=== PATIENT | female | born 1935 | race African-American/Black ===

== ENCOUNTER 2016-12-15 07:26 | Day surgery (SDC) | payer MEDICARE ==
[~2016-12-15] VITALS: Ht 167.6 cm; Wt 83.0 kg
--- NOTE | ~2016-12-15 | EGD ---
EGD REPORT [facility] [address] [address] NAME: SIDDHARTH WHATLEY : [birth year] STATUS : [facility]#: [id number] AGE: 81 ADM/REG DATE : 12/15/16 MR#: [id number] REPORT SERV DATE: 12/18/16 DICTATED BY: ALBERT BRADEN DATE: 12/18/16 REPORT STATUS : Draft [facility] DATE: 12/18/16 Pulmonology Patient Name: Siddharth Whatley Procedure Date: 12/15/2016 10:14 AM Date of : 1935 Attending MD: JOSHUA BRADEN MD Procedure Date No Time: 12/15/2016 Procedure: Bronchoscopy Indications: Tracheostomy change. Unable to peform with home health Providers: JOSHUA BRADEN MD Referring MD: TUNDE LIN Medicines: Lidocaine 2% 20 mL Complications: No immediate complications Procedure: Pre-Anesthesia Assessment: - ASA Grade Assessment: III - A patient with severe systemic disease. - After reviewing the risks and benefits, the patient was deemed in satisfactory condition to undergo the procedure. - A History and Physical has been performed. Patient meds and allergies have been reviewed. The risks and benefits of the procedure and the sedation options and risks were discussed with the patient. All questions were answered and informed consent was obtained. Patient identification and proposed procedure were verified prior to the procedure by the physician and the nurse in the pre-procedure area in the procedure room. Mental Status Examination: alert and oriented. Airway Examination: status post tracheostomy. CV Examination: normal and RRR, no murmurs, no S3 or S4. ASA Grade Assessment: III - A patient with severe systemic disease. After reviewing the risks and benefits, the patient was deemed in satisfactory condition to undergo the procedure. The anesthesia plan was to use general anesthesia. Immediately prior to administration of medications, the patient was re-assessed for adequacy to receive sedatives. The heart rate, respiratory rate, oxygen saturations, blood pressure, adequacy of pulmonary ventilation, and response to care were monitored throughout the procedure. The physical status of the patient was re-assessed after the procedure. After obtaining informed consent, the BF [id number] was introduced through the mouth, via face mask and advanced to the tracheobronchial tree. The procedure was accomplished without difficulty. The patient EGD REPORT [address] [place]. [address] NAME: SIDDHARTH WHATLEY : [birth year] STATUS : [facility] PAT#: [id number] AGE: 81 ADM/REG DATE : 12/15/16 MR#: [id number] REPORT SERV DATE: 12/18/16 DICTATED BY: ALBERT BRADEN DATE: 12/18/16 REPORT STATUS : Draft TRANSCRIBED BY: [employer] DATE: 12/18/16 tolerated the procedure well. Findings: The distal portion of the Portex 7.0 trach was nearly (90%) occluded by a shelf of tissue. Below the shelf of tissue the trachea is completely patent. The alexander is sharp. The tracheobronchial tree was examined to at least the first subsegmental level. Bronchial mucosa and anatomy are normal; there are no endobronchial lesions. Thick white secretions were aspirated. Bronchoalveolar lavage was performed in the right middle lobe of the lung and sent for cell count, cytology, bacterial culture, viral smears \T\ culture, and fungal and AFB analysis. 60 mL of fluid were instilled. 20 mL were returned. The return was cloudy. The Portex trach was difficult to remove secondary to granulation tissue but eventually easily removed. To bypass the shelf of tissue obstructing the distal portion of trach a 6.0 Shiley frenestrated cuffed trach was placed. The airway is no longer obstructed. Impression: Portex 7.0 trach was nearly (90%) occluded by a shelf of tissue. 6.0 Shiley frenestrated cuffed trach was placed. The airway is no longer obstructed. Recommendation: - Chest X-ray post-procedure. Attending Participation: I personally performed the entire procedure. JOSHUA BRADEN MD 12/15/2016 11:03 AM This report has been signed electronically. Number of Addenda: 0 Note Initiated On: 12/15/2016 10:14 AM [address] [address]
--- NOTE | ~2016-12-15 | EGD ---
EGD REPORT [facility] [address] [address] NAME: SIDDHARTH WHATLEY : [birth year] STATUS : [facility]#: [id number] AGE: 81 ADM/REG DATE : 12/15/16 MR#: [id number] REPORT SERV DATE: 12/18/16 DICTATED BY: ALBERT BRADEN DATE: 12/18/16 REPORT STATUS : Draft [facility]: [facility] DATE: 12/18/16 Pulmonology Patient Name: Siddharth Whatley Procedure Date: 12/15/2016 10:14 AM Date of : 1935 Attending MD: JOSHUA BRADEN MD Procedure Date No Time: 12/15/2016 Procedure: Bronchoscopy Indications: Tracheostomy change. Unable to peform with home health Providers: JOSHUA BRADEN MD Referring MD: TUNDE LIN Medicines: Lidocaine 2% 20 mL Complications: No immediate complications Procedure: Pre-Anesthesia Assessment: - ASA Grade Assessment: III - A patient with severe systemic disease. - After reviewing the risks and benefits, the patient was deemed in satisfactory condition to undergo the procedure. - A History and Physical has been performed. Patient meds and allergies have been reviewed. The risks and benefits of the procedure and the sedation options and risks were discussed with the patient. All questions were answered and informed consent was obtained. Patient identification and proposed procedure were verified prior to the procedure by the physician and the nurse in the pre-procedure area in the procedure room. Mental Status Examination: alert and oriented. Airway Examination: status post tracheostomy. CV Examination: normal and RRR, no murmurs, no S3 or S4. ASA Grade Assessment: III - A patient with severe systemic disease. After reviewing the risks and benefits, the patient was deemed in satisfactory condition to undergo the procedure. The anesthesia plan was to use general anesthesia. Immediately prior to administration of medications, the patient was re-assessed for adequacy to receive sedatives. The heart rate, respiratory rate, oxygen saturations, blood pressure, adequacy of pulmonary ventilation, and response to care were monitored throughout the procedure. The physical status of the patient was re-assessed after the procedure. After obtaining informed consent, the BF [id number] was introduced through the mouth, via face mask and advanced to the tracheobronchial tree. The procedure was accomplished without difficulty. The patient EGD REPORT [address] [place]. [address] NAME: SIDDHARTH WHATLEY : [birth year] STATUS : [facility] PAT#: [id number] AGE: 81 ADM/REG DATE : 12/15/16 MR#: [id number] REPORT SERV DATE: 12/18/16 DICTATED BY: ALBERT BRADEN DATE: 12/18/16 REPORT STATUS : Draft TRANSCRIBED BY: [employer] DATE: 12/18/16 tolerated the procedure well. Findings: The distal portion of the Portex 7.0 trach was nearly (90%) occluded by a shelf of tissue. Below the shelf of tissue the trachea is completely patent. The alexander is sharp. The tracheobronchial tree was examined to at least the first subsegmental level. Bronchial mucosa and anatomy are normal; there are no endobronchial lesions. Thick white secretions were aspirated. Bronchoalveolar lavage was performed in the right middle lobe of the lung and sent for cell count, cytology, bacterial culture, viral smears \T\ culture, and fungal and AFB analysis. 60 mL of fluid were instilled. 20 mL were returned. The return was cloudy. The Portex trach was difficult to remove secondary to granulation tissue but eventually easily removed. To bypass the shelf of tissue obstructing the distal portion of trach a 6.0 Shiley frenestrated cuffed trach was placed. The airway is no longer obstructed. Impression: Portex 7.0 trach was nearly (90%) occluded by a shelf of tissue. 6.0 Shiley frenestrated cuffed trach was placed. The airway is no longer obstructed. Recommendation: - Chest X-ray post-procedure. Attending Participation: I personally performed the entire procedure. JOSHUA BRADEN MD 12/15/2016 11:03 AM This report has been signed electronically. Number of Addenda: 0 Note Initiated On: 12/15/2016 10:14 AM [address] [address]
--- NOTE | ~2016-12-15 | EGD ---
EGD REPORT [facility] [address] [address] NAME: SIDDHARTH WHATLEY : [birth year] STATUS : [facility]#: [id number] AGE: 81 ADM/REG DATE : 12/15/16 MR#: [id number] REPORT SERV DATE: 12/15/16 DICTATED BY: ALBERT BRADEN DATE: 12/15/16 REPORT STATUS : Draft TRANSCRIBED BY: [facility] DATE: 12/15/16 Pulmonology Patient Name: Siddharth Whatley Procedure Date: 12/15/2016 10:14 AM Date of : 1935 Attending MD: JOSHUA BRADEN MD Procedure Date No Time: 12/15/2016 Procedure: Bronchoscopy Indications: Tracheostomy change. Unable to peform with home health Providers: JOSHUA BRADEN MD Referring MD: TUNDE LIN Medicines: Lidocaine 2% 20 mL Complications: No immediate complications Procedure: Pre-Anesthesia Assessment: - ASA Grade Assessment: III - A patient with severe systemic disease. - After reviewing the risks and benefits, the patient was deemed in satisfactory condition to undergo the procedure. - A History and Physical has been performed. Patient meds and allergies have been reviewed. The risks and benefits of the procedure and the sedation options and risks were discussed with the patient. All questions were answered and informed consent was obtained. Patient identification and proposed procedure were verified prior to the procedure by the physician and the nurse in the pre-procedure area in the procedure room. Mental Status Examination: alert and oriented. Airway Examination: status post tracheostomy. CV Examination: normal and RRR, no murmurs, no S3 or S4. ASA Grade Assessment: III - A patient with severe systemic disease. After reviewing the risks and benefits, the patient was deemed in satisfactory condition to undergo the procedure. The anesthesia plan was to use general anesthesia. Immediately prior to administration of medications, the patient was re-assessed for adequacy to receive sedatives. The heart rate, respiratory rate, oxygen saturations, blood pressure, adequacy of pulmonary ventilation, and response to care were monitored throughout the procedure. The physical status of the patient was re-assessed after the procedure. After obtaining informed consent, the BF [id number] was introduced through the mouth, via face mask and advanced to the tracheobronchial tree. The procedure was accomplished without difficulty. The patient EGD REPORT [address] [place]. [address] NAME: SIDDHARTH WHATLEY : [birth year] STATUS : [facility] PAT#: [id number] AGE: 81 ADM/REG DATE : 12/15/16 MR#: [id number] REPORT SERV DATE: 12/15/16 DICTATED BY: ALBERT BRADEN DATE: 12/15/16 REPORT STATUS : Draft TRANSCRIBED BY: [email or web address] DATE: 12/15/16 tolerated the procedure well. Findings: The distal portion of the Portex 7.0 trach was nearly (90%) occluded by a shelf of tissue. Below the shelf of tissue the trachea is completely patent. The alexander is sharp. The tracheobronchial tree was examined to at least the first subsegmental level. Bronchial mucosa and anatomy are normal; there are no endobronchial lesions. Thick white secretions were aspirated. Bronchoalveolar lavage was performed in the right middle lobe of the lung and sent for cell count, cytology, bacterial culture, viral smears \T\ culture, and fungal and AFB analysis. 60 mL of fluid were instilled. 20 mL were returned. The return was cloudy. The Portex trach was difficult to remove secondary to granulation tissue but eventually easily removed. To bypass the shelf of tissue obstructing the distal portion of trach a 6.0 Shiley frenestrated cuffed trach was placed. The airway is no longer obstructed. Impression: Portex 7.0 trach was nearly (90%) occluded by a shelf of tissue. 6.0 Shiley frenestrated cuffed trach was placed. The airway is no longer obstructed. Recommendation: - Chest X-ray post-procedure. Attending Participation: I personally performed the entire procedure. JOSHUA BRADEN MD 12/15/2016 11:03 AM This report has been signed electronically. Number of Addenda: 0 Note Initiated On: 12/15/2016 10:14 AM [address] [address]
[~2016-12-15 07:26] MED LIST: ALBUTEROL0.083 % INH; ANTI-FUNGAL2 % EX; APRES50 PO; ASAB PO; ATROVENTUD INH; ATV.5 NGT; ATV.5 PEG; BUSPAR10 PO; CHLORASEPTIC1.4 % MT; COLACEUDL PEG; COREG12 NGT; COREG25 PO; COZ50 NGT; COZ50 PEG; COZ50 PO; COZAAR100 MG PO; DESITIN TOP; DSS NGT; DSS PO; DUONEB INH; EFFEX37.5 PO; FOLIC PEG; FOLIC PO; GENASYME80 MG NGT; HALF81 PO; HEPA50006 SC; LANSOPRAZOLE NGT; LEVOTHYROXIN100 MCG PEG; LEVOTHYROXIN100 MCG PO; LEVOTHYROXIN88 MCG PO; LIPITOR10 NGT; LIPITOR10 PEG; LIPITOR10 PO; MACROBID PEG; MENTHOL T; MEVACOR40 MG PO; MICROZIDE PO; MIRALAX POWDER1 PKT PO; MIRALAXPKT NGT; MULTIVIT/MIN PEG; NASONEX NAS; NATURA2 OP; NORCO1 TA1 PEG; NORCO1 TA1 PO; NORV5 PO; PERFOROM INH; PERIDEX PO; PERIOGARD0.12 % MT; PREV30 PO; PRILO PEG; PRILO PO; PRILOSEC40 MG PO; REFRESH OPH; SEROQUEL25 NGT; SEROQUEL25 PO; SYN1 PO; T NGT; T PEG; VITAMIN D OTC PO; VITAMIN D400 UNI1 PO; X5 PO; ZINC OXIDE T; ZOFRAN4 NGT; ZOFRAN4 PEG; ZOL100 NGT; ZOL100 PEG; ZOL100 PO; ZOL50 PO; ZOLOFT25 MG PO
[2016-12-15 14:46] LABS: BD FL SOURCE (NOT ORD) BAL; BF TOTAL CELL CT (NOT ORD 1015 /MM3; BODY FLUID RBC (NOT ORD) 1000 /MM3
[2016-12-15 15:54] LABS: BD FL LYMPH (NOT ORD) 1 %; BF BASO (NOT OF) 0 %; BF LARGE MONONUCLEAR 45 %; BODY FLUID EOS (NOT ORD) 0 %; BODY FLUID SEG (NOT ORD) 54 %
[2016-12-18] MEDS ORDERED: SYSTANE OPH (21:08)
== END 2016-12-15 23:59 | disposition home or self-care (01) ==
LOC: DMU 07:26
PROVIDERS: Internal Medicine
PROC: 0B9D8ZX Drainage of Right Middle Lung Lobe, Via Natural or Artificial Opening Endoscopic, Diagnostic (ICD-10-PCS; principal; 2016-12-15 09:30)
PROC: 0B918ZZ Drainage of Trachea, Via Natural or Artificial Opening Endoscopic (ICD-10-PCS; 2016-12-15 09:30)
DX: J18.9 Pneumonia, unspecified organism (principal); J96.10 Chronic respiratory failure, unspecified whether with hypoxia or hypercapnia; I10 Essential (primary) hypertension; J98.6 Disorders of diaphragm; E03.9 Hypothyroidism, unspecified; E11.9 Type 2 diabetes mellitus without complications; Z86.73 Personal history of transient ischemic attack (TIA), and cerebral infarction without residual deficits; Z87.891 Personal history of nicotine dependence; Z90.49 Acquired absence of other specified parts of digestive tract; Z90.711 Acquired absence of uterus with remaining cervical stump; Z98.890 Other specified postprocedural states
CPT/HCPCS: 71010; 80048; 85025; 85610; 85730; 87015; 87070; 87077; 87102; 87116; 87186; 87205; 88112; 89051; 93005; J3010